=== PATIENT | female | born 2000 | race Caucasian/White ===

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

== ENCOUNTER 2022-03-14 11:54 | Emergency (ER) | payer OTHER ==
[2022-03-14 12:05] VITALS: RESP 18; TEMP 98.3; BMI 28.3
[2022-03-14 12:11] VITALS: BP 119/70
[2022-03-14] MEDS ORDERED: ACETAMINOPHEN 1000 MG/100 ML BAG IVPB ONE (12:39)
[2022-03-14] MEDS ORDERED: SODIUM CHLORIDE 0.9% 500 ML INFUS.BAG IV ONE (12:39)
[2022-03-14] MEDS ORDERED: FAMOTIDINE 20 MG/50 ML IVPB 20 MG/50 ML MG IVPB ONE ×2 (12:39→13:10)
[2022-03-14] MEDS ORDERED: MAG HYDROX/AL HYDROX/SIMETH 30 ML UNIT-DOSE CUP PO ONE (12:41)
[2022-03-14] MEDS ORDERED: ACETAMINOPHEN INJECTION 100 ML IVPB ONE (13:10)
[2022-03-14] MEDS ORDERED: MAG HYDROX/AL HYDROX/SIMETH 30 ML UNIT-DOSE CUP ONE (13:10)
[2022-03-14 13:56] LABS: BASO % 0.3 % (0-2.0); EOS % 1.1 % (0-4.5); HEMATOCRIT 44.1 % (32.4-45.2); HEMOGLOBIN 14.4 GM/dL (10.7-15.3); LYMPH % 26.6 % (8-40); MCH 29.3 pg (25.7-33.7); MCHC 32.7 g/dl (32.0-36.0); MEAN CELL VOLUME 89.6 fl (80-96); MEAN PLT VOLUME 12.1 fl (7.5-11.1); MONO % 9.1 % (3.8-10.2); NEUT % 62.9 % (42.8-82.8); PLATELET COUNT 172 10^3/uL (134-434); RBC 4.92 M/mm3 (3.60-5.2); RDW 12.7 % (11.6-15.6)
[2022-03-14 14:00] LABS: EPI CELLS 15 /uL (0-25.1); HCG,QUALITATIVE URINE Negative; HYALINE CASTS 1 /uL (0-3.1); PH,URINE 5.5 (5.0-8.0); URINE APPEARANCE CLEAR; URINE BACTERIA 42 /uL (0-1359); URINE BILIRUBIN NEGATIVE (NEGATIVE); URINE COLOR YELLOW; URINE GLUCOSE (UA) NEGATIVE (NEGATIVE); URINE KETONE 1+ (NEGATIVE); URINE LEUK ESTERASE NEGATIVE (NEGATIVE); URINE NITRITE NEGATIVE (NEGATIVE); URINE PROTEIN TRACE (NEGATIVE); URINE RBC 9 /uL (0-23.9); URINE UROBILINOGEN 0.2 mg/dL (0.2-1.0); URINE WBC 5 /uL (0-25.8)
[2022-03-14 14:15] LABS: ALBUMIN 3.4 g/dl (3.4-5.0); BLOOD UREA NITROGEN 10.3 mg/dL (7-18); CALCIUM 8.9 mg/dL (8.5-10.1)
[2022-03-14 14:18] LABS: CREATININE 0.7 mg/dL (0.55-1.3); PHOSPHOROUS 2.8 mg/dL (2.5-4.9)
[2022-03-14 14:19] LABS: TOT PROT 7.6 g/dl (6.4-8.2)
[2022-03-14 14:20] LABS: BILIRUBIN,TOTAL 0.6 mg/dL (0.2-1)
[2022-03-14] MEDS ORDERED: KETOROLAC TROMETHAMINE 15 MG/ML VIAL IVPUSH ONE (17:03)
[2022-03-14] MEDS ORDERED: KETOROLAC TROMETHAMINE 15 MG/ML VIAL ONE (17:10)
[2022-03-14 17:20] VITALS: PULSE 89
== END 2022-03-14 17:20 | disposition home or self-care (01) ==
LOC: JER 11:54
PROC: 3E033GC Introduction of Other Therapeutic Substance into Peripheral Vein, Percutaneous Approach (ICD-10-PCS; principal; 2022-03-14)
DX: R19.7 Diarrhea, unspecified (principal)
CPT/HCPCS: 0241U-QW; 36415; 74177-TC; 80053; 81003; 83690; 83735; 84100; 84703; 85025; 87077; 87086; 96365; 96375; 99285-25; Q9967

== ENCOUNTER 2022-12-27 09:54 | Emergency (ER) | payer OTHER ==
[2022-12-27 10:25] VITALS: BP 105/73; PULSE 74; RESP 20; TEMP 98.7; BMI 29.9
[2022-12-27 11:45] LABS: PH,URINE 7.5 (5.0-8.0); URINE APPEARANCE CLEAR; URINE BILIRUBIN NEGATIVE (NEGATIVE); URINE COLOR YELLOW; URINE GLUCOSE (UA) NEGATIVE (NEGATIVE); URINE KETONE NEGATIVE (NEGATIVE); URINE LEUK ESTERASE NEGATIVE (NEGATIVE); URINE NITRITE NEGATIVE (NEGATIVE); URINE PROTEIN NEGATIVE (NEGATIVE)
[2022-12-27 11:47] LABS: HCG,QUALITATIVE URINE Positive
[2022-12-27 12:23] LABS: BASO % 0.4 % (0-2.0); HEMATOCRIT 43.1 % (32.4-45.2); HEMOGLOBIN 15.2 GM/dL (10.7-15.3); LYMPH % 37.1 % (8-40); MCH 31.5 pg (25.7-33.7); MCHC 35.3 g/dl (32.0-36.0); MEAN CELL VOLUME 89.2 fl (80-96); MEAN PLT VOLUME 10.8 fl (7.5-11.1); MONO % 8.7 % (3.8-10.2); NEUT % 52.8 % (42.8-82.8); PLATELET COUNT 153 10^3/uL (134-434); RBC 4.83 M/mm3 (3.60-5.2); RDW 13.2 % (11.6-15.6); WHITE BLOOD COUNT 5.5 K/mm3 (4.0-10.0)
[2022-12-27 12:57] LABS: POTASSIUM 4.7 mmol/L (3.5-5.1)
[2022-12-27 12:58] LABS: CALCIUM 8.9 mg/dL (8.5-10.1)
[2022-12-27 12:59] LABS: BLOOD UREA NITROGEN 6.1 mg/dL (7-18)
[2022-12-27 13:02] LABS: CREATININE 0.6 mg/dL (0.55-1.3)
[2022-12-27 13:04] LABS: BILIRUBIN,TOTAL 0.7 mg/dL (0.2-1); TOT PROT 8.8 g/dl (6.4-8.2)
== END 2022-12-27 16:38 | disposition home or self-care (01) ==
LOC: JERFT 09:54
DX: O26.891 Other specified pregnancy related conditions, first trimester (principal); R10.31 Right lower quadrant pain; O20.9 Hemorrhage in early pregnancy, unspecified; Z3A.00 Weeks of gestation of pregnancy not specified
CPT/HCPCS: 36415; 76817-TC; 80053; 81003; 84702; 84703; 85025; 86850; 86900; 86901; 87086; 99284-25

== ENCOUNTER 2022-12-29 17:21 | Emergency (ER) | payer OTHER ==
[2022-12-29 17:37] VITALS: BP 108/75; PULSE 69; RESP 18; TEMP 98.1; BMI 29.0
[2022-12-29 18:50] LABS: BASO % 0.3 % (0-2.0); EOS % 1.6 % (0-4.5); HEMATOCRIT 39.5 % (32.4-45.2); HEMOGLOBIN 13.4 GM/dL (10.7-15.3); LYMPH % 41.1 % (8-40); MCH 30.6 pg (25.7-33.7); MEAN PLT VOLUME 10.6 fl (7.5-11.1); MONO % 9.8 % (3.8-10.2); NEUT % 47.2 % (42.8-82.8); PLATELET COUNT 148 10^3/uL (134-434); RBC 4.39 M/mm3 (3.60-5.2); RDW 13.1 % (11.6-15.6); WHITE BLOOD COUNT 5.9 K/mm3 (4.0-10.0)
[2022-12-29 18:53] LABS: EPI CELLS 13 /uL (0-25.1); HYALINE CASTS 1 /uL (0-3.1); PH,URINE 6.5 (5.0-8.0); URINE APPEARANCE CLEAR; URINE BACTERIA 131 /uL (0-1359); URINE BILIRUBIN NEGATIVE (NEGATIVE); URINE COLOR YELLOW; URINE GLUCOSE (UA) NEGATIVE (NEGATIVE); URINE KETONE NEGATIVE (NEGATIVE); URINE LEUK ESTERASE NEGATIVE (NEGATIVE); URINE NITRITE NEGATIVE (NEGATIVE); URINE PROTEIN NEGATIVE (NEGATIVE); URINE RBC 20 /uL (0-23.9); URINE WBC 3 /uL (0-25.8)
[2022-12-29 19:08] LABS: POTASSIUM 4.4 mmol/L (3.5-5.1)
[2022-12-29 19:10] LABS: CALCIUM 8.5 mg/dL (8.5-10.1)
[2022-12-29 19:11] LABS: ALBUMIN 3.6 g/dl (3.4-5.0); BLOOD UREA NITROGEN 8.5 mg/dL (7-18)
[2022-12-29 19:14] LABS: CREATININE 0.8 mg/dL (0.55-1.3)
[2022-12-29 19:16] LABS: BILIRUBIN,TOTAL 0.4 mg/dL (0.2-1); TOT PROT 7.8 g/dl (6.4-8.2)
== END 2022-12-29 20:41 | disposition home or self-care (01) ==
LOC: JER 17:21
DX: R10.31 Right lower quadrant pain (principal); R79.89 Other specified abnormal findings of blood chemistry
CPT/HCPCS: 36415; 80053; 81003; 84702; 85025; 87086; 99283-25

== ENCOUNTER 2023-01-04 13:13 | Emergency (ER) | payer OTHER ==
[2023-01-04 13:42] VITALS: BMI 28.8
[2023-01-04] MEDS ORDERED: ACETAMINOPHEN 1000 MG/100 ML BAG IVPB ONE (14:50)
[2023-01-04] MEDS ORDERED: ACETAMINOPHEN INJECTION 100 ML IVPB ONE (15:18)
[2023-01-04 15:49] LABS: URINE APPEARANCE CLEAR; URINE BILIRUBIN NEGATIVE (NEGATIVE); URINE COLOR YELLOW; URINE GLUCOSE (UA) NEGATIVE (NEGATIVE); URINE KETONE NEGATIVE (NEGATIVE); URINE LEUK ESTERASE NEGATIVE (NEGATIVE); URINE NITRITE NEGATIVE (NEGATIVE); URINE PROTEIN NEGATIVE (NEGATIVE); URINE UROBILINOGEN 0.2 mg/dL (0.2-1.0)
[2023-01-04 15:55] LABS: INR 1.07 (0.83-1.09); PROTHROMBIN TIME (PATIENT) 12.4 SEC (9.7-13.0)
[2023-01-04 15:58] LABS: ACTIVATED PTT 26.9 SECONDS (25.2-36.5)
[2023-01-04 16:00] LABS: HEMOGLOBIN 14.5 GM/dL (10.7-15.3); MCH 29.6 pg (25.7-33.7); MCHC 32.3 g/dl (32.0-36.0); MEAN CELL VOLUME 91.5 fl (80-96); MEAN PLT VOLUME 11.5 fl (7.5-11.1); PLATELET COUNT 160 10^3/uL (134-434); RBC 4.92 M/mm3 (3.60-5.2); RDW 13.2 % (11.6-15.6); WHITE BLOOD COUNT 6.1 K/mm3 (4.0-10.0)
[2023-01-04 16:08] LABS: POTASSIUM 5.1 mmol/L (3.5-5.1)
[2023-01-04 16:10] LABS: ALBUMIN 3.8 g/dl (3.4-5.0); BLOOD UREA NITROGEN 8.8 mg/dL (7-18); CALCIUM 8.9 mg/dL (8.5-10.1)
[2023-01-04 16:12] LABS: CREATININE 0.7 mg/dL (0.55-1.3)
[2023-01-04 16:14] LABS: BILIRUBIN,TOTAL 0.4 mg/dL (0.2-1); TOT PROT 8.3 g/dl (6.4-8.2)
[2023-01-04 16:31] LABS: ANISOCYTOSIS 0; HELMET CELLS 0; HOWELL-JOLLY BODIES 0; MACROCYTOSIS 0; OVALOCYTE 0; ROULEAU 0; SICKELED CELLS 0; TARGET CELLS 0; TEAR DROP CELLS 0; TOXIC GRANULATION 0
[2023-01-04 18:48] VITALS: BP 107/60; PULSE 58; RESP 17; TEMP 98.2
== END 2023-01-04 18:55 | disposition home or self-care (01) ==
LOC: JER 13:13
PROC: 3E033NZ Introduction of Analgesics, Hypnotics, Sedatives into Peripheral Vein, Percutaneous Approach (ICD-10-PCS; principal; 2023-01-04)
DX: O26.892 Other specified pregnancy related conditions, second trimester (principal); R10.84 Generalized abdominal pain; Z3A.17 17 weeks gestation of pregnancy
CPT/HCPCS: 36415; 76830-TC; 80053; 81003; 82150; 83690; 84702; 85025; 85610; 85730; 86850; 86900; 86901; 87086; 99284-25

== ENCOUNTER 2023-01-13 17:35 | Emergency (ER) | payer OTHER ==
[2023-01-13 17:52] VITALS: TEMP 98.2; BMI 29.0
[2023-01-13] MEDS ORDERED: SODIUM CHLORIDE 0.9% 500 ML INFUS.BAG IV ONE ×2 (18:20→19:42)
[2023-01-13 19:04] LABS: BASO % 0.4 % (0-2.0); EOS % 1.6 % (0-4.5); HEMATOCRIT 43.5 % (32.4-45.2); HEMOGLOBIN 14.6 GM/dL (10.7-15.3); LYMPH % 31.7 % (8-40); MCH 30.1 pg (25.7-33.7); MCHC 33.5 g/dl (32.0-36.0); MEAN PLT VOLUME 11.7 fl (7.5-11.1); MONO % 6.5 % (3.8-10.2); NEUT % 59.8 % (42.8-82.8); PLATELET COUNT 145 10^3/uL (134-434); RBC 4.84 M/mm3 (3.60-5.2); RDW 12.8 % (11.6-15.6); WHITE BLOOD COUNT 6.5 K/mm3 (4.0-10.0)
[2023-01-13 19:15] LABS: INR 1.07 (0.83-1.09); PROTHROMBIN TIME (PATIENT) 12.4 SEC (9.7-13.0)
[2023-01-13 19:17] LABS: ACTIVATED PTT 30.8 SECONDS (25.2-36.5)
[2023-01-13 19:29] LABS: POTASSIUM 3.9 mmol/L (3.5-5.1)
[2023-01-13 19:30] LABS: CALCIUM 8.7 mg/dL (8.5-10.1)
[2023-01-13 19:31] LABS: ALBUMIN 4.1 g/dl (3.4-5.0); BLOOD UREA NITROGEN 7.3 mg/dL (7-18)
[2023-01-13 19:34] LABS: CREATININE 0.7 mg/dL (0.55-1.3)
[2023-01-13 19:36] LABS: BILIRUBIN,TOTAL 0.5 mg/dL (0.2-1); TOT PROT 8.5 g/dl (6.4-8.2)
[2023-01-13 20:50] VITALS: RESP 18
[2023-01-13] MEDS ORDERED: OXYTOCIN 20 UNITS in 0.9% NS 20 UNIT/1,000 ML INFUS.BAG IV ONE (21:07)
[2023-01-13] MEDS ORDERED: METHYLERGONOVINE MALEATE 0.2 MG/1 ML AMP IM ONE (21:15)
[2023-01-13 23:12] LABS: BASO % 0.3 % (0-2.0); EOS % 0.9 % (0-4.5); HEMATOCRIT 39.6 % (32.4-45.2); HEMOGLOBIN 13.2 GM/dL (10.7-15.3); LYMPH % 35.9 % (8-40); MCHC 33.2 g/dl (32.0-36.0); MEAN CELL VOLUME 90.2 fl (80-96); MEAN PLT VOLUME 10.8 fl (7.5-11.1); NEUT % 55.9 % (42.8-82.8); PLATELET COUNT 121 10^3/uL (134-434); RBC 4.39 M/mm3 (3.60-5.2); RDW 12.7 % (11.6-15.6); WHITE BLOOD COUNT 7.2 K/mm3 (4.0-10.0)
[2023-01-13] MEDS ORDERED: ACETAMINOPHEN 325 MG TABLET (FP) PO ONE (23:27)
[2023-01-13] MEDS ORDERED: ACETAMINOPHEN 325 MG TABLET (FP) ONE (23:52)
[2023-01-14] MEDS ORDERED: IBUPROFEN 600 MG TABLET (FP) PO ONE (00:54)
[2023-01-14] MEDS ORDERED: IBUPROFEN 400 MG TABLET (FP) PO ONE (01:19)
[2023-01-14 01:28] VITALS: BP 110/78; PULSE 84
== END 2023-01-14 01:28 | disposition home or self-care (01) ==
LOC: JER 17:35
PROC: 3E023GC Introduction of Other Therapeutic Substance into Muscle, Percutaneous Approach (ICD-10-PCS; principal; 2023-01-13)
PROC: 3E033GC Introduction of Other Therapeutic Substance into Peripheral Vein, Percutaneous Approach (ICD-10-PCS; 2023-01-13)
PROC: 3E033GC Introduction of Other Therapeutic Substance into Peripheral Vein, Percutaneous Approach (ICD-10-PCS; 2023-01-13)
PROC: 3E033GC Introduction of Other Therapeutic Substance into Peripheral Vein, Percutaneous Approach (ICD-10-PCS; 2023-01-13)
PROC: 3E033GC Introduction of Other Therapeutic Substance into Peripheral Vein, Percutaneous Approach (ICD-10-PCS; 2023-01-14)
PROC: 3E033GC Introduction of Other Therapeutic Substance into Peripheral Vein, Percutaneous Approach (ICD-10-PCS; 2023-01-14)
PROC: 3E033GC Introduction of Other Therapeutic Substance into Peripheral Vein, Percutaneous Approach (ICD-10-PCS; 2023-01-14)
PROC: 3E033GC Introduction of Other Therapeutic Substance into Peripheral Vein, Percutaneous Approach (ICD-10-PCS; 2023-01-14)
PROC: 3E033GC Introduction of Other Therapeutic Substance into Peripheral Vein, Percutaneous Approach (ICD-10-PCS; 2023-01-14)
DX: O03.9 Complete or unspecified spontaneous abortion without complication (principal); O26.891 Other specified pregnancy related conditions, first trimester; R10.30 Lower abdominal pain, unspecified; R68.83 Chills (without fever)
CPT/HCPCS: 36415; 76801-TC; 80053; 84702; 85025; 85610; 85730; 86850; 86900; 86901; 99284-25

== ENCOUNTER 2023-01-17 13:49 | Observation (INO) | payer OTHER ==
[2023-01-17 14:04] VITALS: BMI 29.0
[2023-01-17] MEDS ORDERED: ACETAMINOPHEN 1000 MG/100 ML BAG IVPB ONE (14:17)
[2023-01-17] MEDS ORDERED: SODIUM CHLORIDE 0.9% 500 ML INFUS.BAG IV ONE (14:17)
[2023-01-17] MEDS ORDERED: ACETAMINOPHEN INJECTION 100 ML IVPB ONE (14:50)
[2023-01-17 15:07] LABS: BASO % 0.1 % (0-2.0); EOS % 0.7 % (0-4.5); HEMATOCRIT 29.8 % (32.4-45.2); HEMOGLOBIN 9.9 GM/dL (10.7-15.3); LYMPH % 14.3 % (8-40); MCH 30.2 pg (25.7-33.7); MCHC 33.2 g/dl (32.0-36.0); MEAN CELL VOLUME 90.9 fl (80-96); MEAN PLT VOLUME 11.7 fl (7.5-11.1); MONO % 5.7 % (3.8-10.2); NEUT % 79.2 % (42.8-82.8); PLATELET COUNT 135 10^3/uL (134-434); RBC 3.28 M/mm3 (3.60-5.2); RDW 12.5 % (11.6-15.6); WHITE BLOOD COUNT 8.5 K/mm3 (4.0-10.0)
[2023-01-17 15:17] LABS: PROTHROMBIN TIME (PATIENT) 11.6 SEC (9.7-13.0)
[2023-01-17 15:19] LABS: ACTIVATED PTT 27.8 SECONDS (25.2-36.5)
[2023-01-17 15:45] LABS: POTASSIUM 3.9 mmol/L (3.5-5.1)
[2023-01-17 15:47] LABS: ALBUMIN 3.4 g/dl (3.4-5.0); BLOOD UREA NITROGEN 9.4 mg/dL (7-18); CALCIUM 8.4 mg/dL (8.5-10.1)
[2023-01-17 15:50] LABS: CREATININE 0.7 mg/dL (0.55-1.3)
[2023-01-17 15:52] LABS: BILIRUBIN,TOTAL 0.2 mg/dL (0.2-1); TOT PROT 7.3 g/dl (6.4-8.2)
[2023-01-17 16:32] LABS: EPI CELLS 11 /uL (0-25.1); HYALINE CASTS 72 /uL (0-3.1); PH,URINE 7.5 (5.0-8.0); URINE APPEARANCE CLEAR; URINE BACTERIA 1 /uL (0-1359); URINE BILIRUBIN NEGATIVE (NEGATIVE); URINE COLOR YELLOW; URINE GLUCOSE (UA) NEGATIVE (NEGATIVE); URINE KETONE NEGATIVE (NEGATIVE); URINE LEUK ESTERASE TRACE (NEGATIVE); URINE NITRITE NEGATIVE (NEGATIVE); URINE PROTEIN 3+ (NEGATIVE); URINE RBC 20982 /uL (0-23.9); URINE WBC 48 /uL (0-25.8)
[2023-01-17] MEDS ORDERED: SODIUM CHLORIDE 1,000 ML IV SCH (23:15)
[2023-01-17] MEDS ORDERED: SODIUM CHLORIDE 1,000 ML IV STA ×2 (23:28)
[2023-01-18 07:34] LABS: BASO % 0.3 % (0-2.0); EOS % 0.8 % (0-4.5); HEMATOCRIT 26.1 % (32.4-45.2); HEMOGLOBIN 8.6 GM/dL (10.7-15.3); LYMPH % 41.4 % (8-40); MCH 30.1 pg (25.7-33.7); MCHC 32.8 g/dl (32.0-36.0); MEAN CELL VOLUME 91.8 fl (80-96); MEAN PLT VOLUME 11.6 fl (7.5-11.1); MONO % 6.6 % (3.8-10.2); NEUT % 50.9 % (42.8-82.8); PLATELET COUNT 145 10^3/uL (134-434); RBC 2.85 M/mm3 (3.60-5.2); RDW 12.5 % (11.6-15.6); WHITE BLOOD COUNT 6.2 K/mm3 (4.0-10.0)
[2023-01-18] MEDS ORDERED: ACETAMINOPHEN 325 MG TABLET (FP) ONE (08:12)
[2023-01-18 08:16] LABS: CALCIUM 7.7 mg/dL (8.5-10.1)
[2023-01-18 08:17] LABS: BILIRUBIN,TOTAL 0.3 mg/dL (0.2-1); BLOOD UREA NITROGEN 10.5 mg/dL (7-18); MAGNESIUM 1.9 mg/dL (1.8-2.4)
[2023-01-18] MEDS: ACETAMINOPHEN 325 MG TABLET (FP) PO PRN (08:18)
[2023-01-18 08:20] LABS: CREATININE 0.5 mg/dL (0.55-1.3)
[2023-01-18 08:21] LABS: TOT PROT 6.2 g/dl (6.4-8.2)
[2023-01-18] MEDS ORDERED: LACTATED RINGERS SOLUTION 1,000 ML/1,000 ML INFUS.BAG IV SCH ×2 (10:00→23:34)
[2023-01-18] MEDS ORDERED: LACTATED RINGERS SOLUTION 1,000 ML/1,000 ML INFUS.BAG IV STA (13:58)
[2023-01-18 16:13] LABS: HEMATOCRIT 25.7 % (32.4-45.2); HEMOGLOBIN 8.7 GM/dL (10.7-15.3); MCH 30.6 pg (25.7-33.7); MEAN CELL VOLUME 90.1 fl (80-96); PLATELET COUNT 148 10^3/uL (134-434); RBC 2.85 M/mm3 (3.60-5.2); RDW 12.7 % (11.6-15.6); WHITE BLOOD COUNT 5.9 K/mm3 (4.0-10.0)
[2023-01-18 23:43] VITALS: RESP 18
[2023-01-19] MEDS: metroNIDAZOLE 250 MG TABLET PO SCH ×2 (00:28→09:24)
[2023-01-19] MEDS: ACETAMINOPHEN 325 MG TABLET (FP) PO PRN ×2 (05:31→11:11)
[2023-01-19 05:53] VITALS: TEMP 98.4
[2023-01-19 09:08] VITALS: BP 98/62; PULSE 68
[2023-01-19 12:29] LABS: HEMATOCRIT 29.7 % (32.4-45.2); MCH 30.4 pg (25.7-33.7); MCHC 33.7 g/dl (32.0-36.0); MEAN CELL VOLUME 90.2 fl (80-96); PLATELET COUNT 141 10^3/uL (134-434); RBC 3.29 M/mm3 (3.60-5.2); RDW 12.9 % (11.6-15.6); WHITE BLOOD COUNT 6.6 K/mm3 (4.0-10.0)
[2023-01-19 13:12] LABS: ANISOCYTOSIS 0; HELMET CELLS 0; HOWELL-JOLLY BODIES 0; MACROCYTOSIS 0; OVALOCYTE 0; ROULEAU 0; SICKELED CELLS 0; TARGET CELLS 0; TEAR DROP CELLS 0; TOXIC GRANULATION 0
== END 2023-01-19 14:10 | disposition home or self-care (01) ==
LOC: JER 13:49 → JERBED 20:32 → J4S 01-18 10:25
PROVIDERS: ADMIT Internal Medicine; ATTEND Internal Medicine
PROC: 30233N1 Transfusion of Nonautologous Red Blood Cells into Peripheral Vein, Percutaneous Approach (ICD-10-PCS; principal; 2023-01-17)
PROC: 3E033NZ Introduction of Analgesics, Hypnotics, Sedatives into Peripheral Vein, Percutaneous Approach (ICD-10-PCS; 2023-01-17)
PROC: 3E0337Z Introduction of Electrolytic and Water Balance Substance into Peripheral Vein, Percutaneous Approach (ICD-10-PCS; 2023-01-17)
DX: O03.9 Complete or unspecified spontaneous abortion without complication (principal); N89.8 Other specified noninflammatory disorders of vagina; N93.9 Abnormal uterine and vaginal bleeding, unspecified; D50.0 Iron deficiency anemia secondary to blood loss (chronic)
CPT/HCPCS: 36415; 36430; 76830-TC; 80053; 81003; 82728; 83540; 83550; 83735; 84100; 84702; 85025; 85027; 85610; 85730; 86850; 86900; 86901; 86922; 87040; 87086; 96361; 96374; 99285-25; G0378; P9058